=== PATIENT | female | born 1940 | race Caucasian/White ===

== ENCOUNTER → 2017-02-18 | Outpatient (CLI) | payer OTHER, MEDICARE ==
[~2017-02-18] MED LIST: CALCIUM 600 +1 EAC1 PO; CENTRUM SILVER1 EAC4 PO; FERROUS SULFATE PO; FISH OIL 1,001000 M2 PO; HYDROCODON-ACE1 EAC7 PO; HYDROCODONE-AP1 EAC6 PO; IRON325 PO; KEFLEX500 MG PO; LEVOTHYROXINE 0.1 MG PO; LIDODERM 5%1 PATC1 TRANSDERM; LIPITOR 20 MG T20 M1 PO; LISINOPRIL30 MG PO; PEPCID20 MG PO; VITAMIN B-COMP1 EAC3 PO; VITAMINC500 PO; [UNRECOGNIZED DRUG - OTHER] PO
== END ==
LOC: NUC 08:09
DX: M81.0 Age-related osteoporosis without current pathological fracture (principal)

== ENCOUNTER → 2018-12-22 | Outpatient (CLI) | payer OTHER, MEDICARE ==
[~2018-12-22] VITALS: Ht 162.6 cm; Wt 79.4 kg
[~2018-12-22] MED LIST changes: +ANASTROZOLE1 MG PO
--- NOTE | ~2018-12-22 | P ---
[facility] [place] [address] PROCEDURE REPORT Name: KWASI ROBERTO Room #: REG [facility].#: [id number] Admission: 12/22/18 ������������������ Attend Phys: González Rodriguez MD Discharge: ������������������ Date of : 38 Report #: [id number] THIS REPORT FOR: //name// CC: González Morales MD DATE OF SERVICE: 12/22/2018 BRIEF HISTORY: The patient is a 78-year-old woman for high risk screening colonoscopy. Brother had colon cancer in his 60s. Mother had colon cancer in her 70s. PREOPERATIVE DIAGNOSIS: High risk screening colonoscopy. POSTOPERATIVE DIAGNOSES: 1. Diverticulosis coli, primarily sigmoid colon with few scattered diverticula in proximal colon. 2. Small internal hemorrhoids. MEDICATIONS: Deep sedation with propofol per anesthesia. SPECIMEN: None. ESTIMATED BLOOD LOSS: None. PROCEDURE: Colonoscopy to cecum and terminal ileum. FINDINGS: Prior to propofol sedation, procedure of colonoscopy discussed with the patient as well as potential risks and its complications. She indicates she understands and desires to proceed. DESCRIPTION OF PROCEDURE: With the patient in the left lateral decubitus position, digital examination was completed, which revealed no abnormalities. Subsequently, the Olympus video colonoscope was introduced in the rectum, advanced under direct vision to the cecum. Done with minimal difficulty. The cecum was identified by the ileocecal valve and the appendiceal orifice. I was able to visualize the distal segment of the terminal ileum, which was inspected and noted to be unremarkable. At that point, the scope was slowly withdrawn and careful circumferential views obtained. Upon slow withdrawal of the scope, the prep was noted with some limitations in the proximal colon. With vigorous irrigation and suctioning, we were able to overall obtain a good prep throughout the colon. The mucosa was within normal limits, normal vascular pattern, normal light reflex. As we withdrew the scope, no neoplastic lesions were seen. She was noted to have a few small diverticula in the proximal colon, but no endoscopic evidence of diverticulitis. The scope was withdrawn in the rectum. [facility] [address] [place] [address] PROCEDURE REPORT Name: KWASI ROBERTO HOLA Room #: REG [facility].#: [id number] Admission: 12/22/18 ������������������ Attend Phys: González Rodriguez MD Discharge: ������������������ Date of : 38 Report #: [id number] Upon retroflexion, small hemorrhoids were seen. Scope was withdrawn. The patient tolerated the procedure well. CONDITION OF THE PATIENT UPON DISCHARGE: Following the procedure, the patient was drowsy, arousable and conversant and will be discharged to home when fully ambulatory. INSTRUCTIONS TO THE PATIENT AND FAMILY AT THE TIME OF DISCHARGE: No neoplastic lesions seen today. Due to her family history, I suggest she return in 5 years for a followup colonoscopy. The patient reports last colonoscopy was 10 years ago. Withdrawal time from the cecum was 14 minutes and 50 seconds. ��������������������������������������������� ���������������������������������������� By: ��������������������������������������������� [id number] González Rodriguez MD /harleen
== END | disposition home or self-care (01) ==
LOC: GI 07:42
DX: Z12.11 Encounter for screening for malignant neoplasm of colon (principal); K57.30 Diverticulosis of large intestine without perforation or abscess without bleeding; K64.8 Other hemorrhoids; I10 Essential (primary) hypertension; E78.5 Hyperlipidemia, unspecified; K21.9 Gastro-esophageal reflux disease without esophagitis; E03.9 Hypothyroidism, unspecified; Z85.3 Personal history of malignant neoplasm of breast; Z98.890 Other specified postprocedural states; Z79.899 Other long term (current) drug therapy
CPT/HCPCS: 62110; 62900

== ENCOUNTER 2019-06-29 13:09 | Emergency (ER) | payer OTHER, MEDICARE ==
[~2019-06-29] VITALS: Ht 165.1 cm; Wt 79.4 kg
[2019-06-29 16:10] VITALS: BP 142/91
--- NOTE | 2019-06-30 07:59 | EKG ---
[place] [address] [address] [facility] [place] [address] ELECTROCARDIOGRAM REPORT Name: KWASI ROBERTO [id number] Admission: 06/29/19 Attend Phys: Discharge: 06/29/19 Date of : 38 Report #: [id number] THIS REPORT FOR: //name// [facility] ED Test Date: 2019-06-29 Test Time: 14:15:12 Pat Name: KWASI ROBERTO Department: Room: Gender: F [employer] Hand: [employer]HEETS : 1940 Requested By: Smita Rodriguez Order Number: [id number] MD: Conrad Cole Measurements Intervals [place] Rate: 72 P: 67 DE: 134 QRS: 20 QRSD: 88 T: 34 QT: 378 QTc: 414 Interpretive Statements Sinus rhythm Poor R wave progression Compared to ECG 03/14/2015 06:56:57 No significant change was found Electronically Signed On 06-30-2019 7:59:21 CDT by Conrad Cole [email or web address] <ELECTRONICALLY SIGNED> By: Conrad Cole MD, [facility] 06/30/19 0759 1415 1415 Conrad Cole MD, FACC /EPI
== END 2019-06-29 16:11 | disposition home or self-care (01) ==
LOC: ER 13:09
DX: S20.212A Contusion of left front wall of thorax, initial encounter (principal); S20.211A Contusion of right front wall of thorax, initial encounter; I10 Essential (primary) hypertension; E78.5 Hyperlipidemia, unspecified; K21.9 Gastro-esophageal reflux disease without esophagitis; E03.9 Hypothyroidism, unspecified; Z90.710 Acquired absence of both cervix and uterus; Z90.721 Acquired absence of ovaries, unilateral; Z98.890 Other specified postprocedural states; Z85.3 Personal history of malignant neoplasm of breast; Z86.2 Personal history of diseases of the blood and blood-forming organs and certain disorders involving the immune mechanism; V89.2XXA Person injured in unspecified motor-vehicle accident, traffic, initial encounter; Y93.I9 Activity, other involving external motion; Y92.89 Other specified places as the place of occurrence of the external cause; Y99.8 Other external cause status

== ENCOUNTER → 2019-08-10 | Outpatient (CLI) | payer OTHER, MEDICARE | LOC: NUC 07-02 12:01 | DX: M85.88 Other specified disorders of bone density and structure, other site (principal); Z78.0 Asymptomatic menopausal state ==